=== PATIENT | male | born 1990 | race Caucasian/White ===

== ENCOUNTER 2018-12-17 15:49 | Emergency (ER) | payer MEDICAID ==
[~2018-12-17] VITALS: Ht 165.1 cm; Wt 55.4 kg
[2018-12-17 15:57] VITALS: BP 139/79
[2018-12-17] MEDS ORDERED: FLUO20CA19 PO (16:21)
[2018-12-17] MEDS ORDERED: OLAN20TA3 PO (16:21)
[2018-12-17] MEDS ORDERED: LIDOCAINE-MPF 1%, 5ML ONE (16:44)
[2018-12-17] MEDS ORDERED: LIDOCAINE 1%, 10ML INFIL ONE (17:00)
== END 2018-12-17 17:12 | disposition home or self-care (01) ==
LOC: ED 16:50
DX: I80.8 Phlebitis and thrombophlebitis of other sites (principal)
CPT/HCPCS: 99284

== ENCOUNTER 2019-01-05 11:27 | Emergency (ER) | payer MEDICAID ==
[~2019-01-05] VITALS: Ht 165.1 cm; Wt 53.4 kg
[~2019-01-05 11:27] MED LIST: FLUO20CA19 PO; OLAN20TA3 PO
[2019-01-05 11:29] VITALS: BP 130/84
[2019-01-05] MEDS ORDERED: PROPARACAINE OPHTH 0.5%, 15ML ONE (11:37)
[2019-01-05] MEDS ORDERED: FLUORESCEIN OPHTHALMIC 1 MG STRIP ONE (11:37)
--- NOTE | 2019-01-05 12:58 | NUR ---
Patient/Caregiver given discharge instructions and they have confirmed that they understand the instructions. Patient ambulatory with steady gait. PT LEFT WITH ALL PERSONAL BELONGINGS.
== END 2019-01-05 12:59 | disposition home or self-care (01) ==
LOC: ED 11:39
DX: T15.01XA Foreign body in cornea, right eye, initial encounter (principal); F17.200 Nicotine dependence, unspecified, uncomplicated
CPT/HCPCS: 65222; 99284

== ENCOUNTER 2019-10-02 15:16 | Emergency (ER) | payer MEDICAID ==
[~2019-10-02] VITALS: Ht 165.1 cm; Wt 66.5 kg
[2019-10-02 15:43] VITALS: BP 132/69
[2019-10-02] MEDS ORDERED: ALPR2TAB5 PO (16:59)
[2019-10-02] MEDS ORDERED: ZOLP10TA PO (16:59)
--- NOTE | 2019-10-02 17:20 | NUR ---
PT VOIDED SCANT AMOUNT URINE. CHECKED W/ LAB; LAB NEEDS AT LEAST 2ML TO RUN TEST. PT INFORMED & INSTRUCTED TO DRINK MORE WATER.
[2019-10-02] MEDS ORDERED: NAPROXEN 500 MG TABLET PO ONE (17:30)
[2019-10-02] MEDS ORDERED: NAPROXEN 500 MG TABLET ONE (17:40)
--- NOTE | 2019-10-02 17:42 | NUR ---
NAPROSYN GIVEN PER EMAR. VOIDED URINE SPECIMEN IN COLLECTION CUP ON COUNTER.
== END 2019-10-02 17:58 | disposition home or self-care (01) ==
LOC: ED 17:50
DX: K08.89 Other specified disorders of teeth and supporting structures (principal); B37.42 Candidal balanitis; F17.200 Nicotine dependence, unspecified, uncomplicated
CPT/HCPCS: 87491; 87591; 99283

== ENCOUNTER 2019-10-08 16:38 | Emergency (ER) | payer MEDICAID ==
[~2019-10-08] VITALS: Ht 165.1 cm; Wt 62.0 kg
[~2019-10-08 16:38] MED LIST changes: +ALPR2TAB5 PO; +ZOLP10TA PO
[2019-10-08 16:47] VITALS: BP 123/72
--- NOTE | 2019-10-08 17:09 | NUR ---
PA TO BEDSIDE FOR ASSESSMENT
--- NOTE | 2019-10-08 17:27 | NUR ---
PHARM REQUEST SENT
[2019-10-08] MEDS ORDERED: FLUCONAZOLE 100 MG TABLET ONE ×2 (17:30→17:32)
--- NOTE | 2019-10-08 17:40 | NUR ---
PT BECAME COMBATIVE WITH STAFF, SECURITY TO WALK PT TO DC. ATTEMPTED TO MEDICATED BUT PT NOT AVAILABLE. SCRIPT LEFT AT CHARGE DESK IF PT COMES BACK AT ANOTHER TIME
[2019-10-08] MEDS ORDERED: FLUCONAZOLE 50 MG TABLET PO ONE (18:00)
[2019-10-08] MEDS ORDERED: LIDOCAINE GEL 2%, 5ML TP ONE (18:00)
== END 2019-10-08 17:43 | disposition home or self-care (01) ==
LOC: ED 17:36
DX: B37.42 Candidal balanitis (principal); N48.89 Other specified disorders of penis; Z72.9 Problem related to lifestyle, unspecified; F17.200 Nicotine dependence, unspecified, uncomplicated
CPT/HCPCS: 99283